=== PATIENT | female | born 1980 | race Caucasian/White ===

== ENCOUNTER 2018-03-30 13:10 | Emergency (ER) | payer OTHER ==
[~2018-03-30] VITALS: Ht 157.5 cm; Wt 70.9 kg
[2018-03-30 13:15] VITALS: BP 135/76
--- NOTE | 2018-03-30 13:16 | NUR ---
PT BROUGHT TO BED 5
[2018-03-30] MEDS ORDERED: FAMOTIDINE 20 MG/2 ML VIAL IVP ONE (13:35)
[2018-03-30] MEDS ORDERED: ACETAMINOPHEN EXTRA STRENGTH 500 MG TAB PO ONE (13:35)
[2018-03-30] MEDS ORDERED: ONDANSETRON 4 MG/2 ML VIAL IVP ONE (13:35)
--- NOTE | 2018-03-30 13:50 | NUR ---
BIB WITH C/O LT SIDED CHEST PAIN RADIATING TO THE BACK SIDE SINCE LAST NIGHT; DENIES N/V/D; 11 WKS ; LMP 01/12/2018 G 4 P2 MISC 1 HX; DENIES RX; DENIES
[2018-03-30 13:55] LABS: BASOPHILS % (AUTO) 0.3 % (0.0-2.0); EOSINOPHILS # (AUTO) 0.1 K/uL (0-0.4); EOSINOPHILS % (AUTO) 0.6 % (0.0-4.0); HEMATOCRIT 36.9 % (36-48); HEMOGLOBIN 12.3 g/dL (12.0-16.0); LYMPHOCYTES # (AUTO) 1.3 K/uL (2.5-16.5); LYMPHOCYTES % (AUTO) 12.4 % (20.5-51.1); MEAN CORPUSCULAR HEMOGLOBIN 28 pg (27-31); MEAN CORPUSCULAR HGB CONC 33 g/dL (33-37); MEAN CORPUSCULAR VOLUME 84.5 fL (80-94); MONOCYTES # (AUTO) 0.5 K/uL (0.8-1.0); MONOCYTES % (AUTO) 5.2 % (1.7-9.3); NEUTROPHILS # (AUTO) 8.3 K/uL (1.8-7.7); NEUTROPHILS % (AUTO) 81.5 % (42.2-75.2); PLATELET COUNT (AUTO) 235 K/uL (140-450); RED BLOOD CELL COUNT(AUTO) 4.36 MIL/uL (4.20-5.40); RED CELL DISTRIBUTION WIDTH 13.2 % (11.6-13.7); WHITE BLOOD COUNT (AUTO) 10.2 K/uL (4.8-10.8)
[2018-03-30] MEDS ORDERED: ONDANSETRON 4 MG/2 ML VIAL ONE (14:05)
[2018-03-30 14:06] LABS: ANION GAP 12.5 (8-16); CARBON DIOXIDE 22.8 mmol/L (21-32); CREATININE 0.7 mg/dL (0.6-1.3); POTASSIUM 3.3 mmol/L (3.5-5.1)
[2018-03-30] MEDS ORDERED: FAMOTIDINE 20 MG/2 ML VIAL ONE (14:07)
[2018-03-30] MEDS ORDERED: ACETAMINOPHEN EXTRA STRENGTH 500 MG TAB ONE (14:07)
[2018-03-30 14:12] LABS: TOTAL BILIRUBIN 0.2 mg/dL (0.0-1.0)
[2018-03-30] MEDS: NACL 0.9% 1,000 ML IV SCH ×2 (14:21→14:30)
[2018-03-30 14:32] LABS: APPEARANCE,URINE HAZY (CLEAR); BILIRUBIN,URINE 1+ (NEGATIVE); BLOOD, URINE TRACE-I (NEGATIVE); COLOR,URINE YELLOW (YELLOW); LEUKOCYTE ESTERASE ,URINE NEGATIVE (NEGATIVE); NITRITE, URINE NEGATIVE (NEGATIVE); UGLUCOSE NEGATIVE (NEGATIVE)
[2018-03-30] MEDS ORDERED: POTASSIUM CHLORIDE 10 MEQ TABER PO ONE ×2 (14:40→14:58)
[2018-03-30 15:03] LABS: RBC,URINE 0-5 (RARE) /HPF (0-5)
[2018-03-30 15:36] VITALS: BP 135/76
--- NOTE | 2018-03-30 15:39 | NUR ---
Patient discharged with v/s stable. Written and verbal after care instructions given and explained. Patient alert, oriented and verbalized understanding of instructions. Ambulatory with steady gait. All questions addressed prior to discharge. ID band removed. Patient advised to follow up with PMD. Rx of PEPCID, TYLENOL, MACROBID, ZOFRAN given. Patient educated on indication of medication including possible reaction and side effects. Opportunity to ask questions provided and answered.
== END 2018-03-30 15:39 | disposition home or self-care (01) ==
LOC: MED 13:10
DX: O26.891 Other specified pregnancy related conditions, first trimester (principal); R10.13 Epigastric pain; R51 Headache; Z3A.11 11 weeks gestation of pregnancy
CPT/HCPCS: 36415; 76705; 76830; 80053; 81001; 82150; 83690; 84702; 85025; 87086; 93005; 96374; 96375; 99285; J2405; J3490; Q0092

== ENCOUNTER 2018-09-12 17:45 | Emergency (ER) | payer OTHER ==
[~2018-09-12] VITALS: Ht 157.5 cm; Wt 68.0 kg
[2018-09-12 17:49] VITALS: BP 131/69
--- NOTE | 2018-09-12 17:50 | NUR ---
BIB WITH . AAO X4. C/O CONGESTION, BODY ACHES, RUNNY NOSE, SORE THROAT AND HEADACHE OF 7/10, GREEN SPUTUM. NO FEVER. NO N/V/D. NO SOB NOTED. CLEAR BILATERAL LUNGS UPON AUSCULTATION. PT TOOK ROBITUSSIN AT 0700 AND TYLENOL AT 1530. PT IS 35 WEEKS .
--- NOTE | 2018-09-12 18:05 | NUR ---
PA AT BEDSIDE FOR PT EVALUATION
[2018-09-12 18:57] LABS: APPEARANCE,URINE CLEAR (CLEAR); BILIRUBIN,URINE 1+ (NEGATIVE); BLOOD, URINE NEGATIVE (NEGATIVE); COLOR,URINE YELLOW (YELLOW); LEUKOCYTE ESTERASE ,URINE NEGATIVE (NEGATIVE); NITRITE, URINE NEGATIVE (NEGATIVE); UGLUCOSE NEGATIVE (NEGATIVE)
--- NOTE | 2018-09-12 19:05 | NUR ---
RECEIVED REPORT FROM VERONIKA HELMS.
[2018-09-12] MEDS ORDERED: ACETAMINOPHEN EXTRA STRENGTH 500 MG TAB PO ONE (19:25)
[2018-09-12] MEDS ORDERED: OSELTAMIVIR PHOSPHATE 75 MG CAP PO ONE (19:25)
[2018-09-12 20:15] VITALS: BP 128/64
--- NOTE | 2018-09-12 20:15 | NUR ---
Patient discharged with v/s stable. Written and verbal after care instructions given and explained. Patient alert, oriented and verbalized understanding of instructions. Ambulatory with steady gait. All questions addressed prior to discharge. ID band removed. Patient advised to follow up with PMD. Rx of TAMIFLU AND TYLENOL given. Patient educated on indication of medication including possible reaction and side effects. Opportunity to ask questions provided and answered.
== END 2018-09-12 20:15 | disposition home or self-care (01) ==
LOC: MED 17:45
DX: J10.1 Influenza due to other identified influenza virus with other respiratory manifestations (principal); R80.9 Proteinuria, unspecified
CPT/HCPCS: 81003; 87804; 99283

== ENCOUNTER 2019-02-15 10:24 | Emergency (ER) | payer OTHER ==
[~2019-02-15] VITALS: Ht 157.5 cm; Wt 74.8 kg
[2019-02-15 10:37] VITALS: BP 134/74
--- NOTE | 2019-02-15 11:13 | NUR ---
Patient ambulated to bed 4. RN evaluating patient at bedside.
--- NOTE | 2019-02-15 11:23 | NUR ---
Dr. Meadows evaluating patient at bedside.
--- NOTE | 2019-02-15 11:24 | NUR ---
PT C/O URI SYMPTOMS X 3 DAYS. WENT TO ON TH AND DX WITH URI, RX OF ZPACK AND PSEUDOEPHRINE DM. SX NOT IMPROVING. STATES NASAL CONGESTION, SNEEZING, THICK GREEN RHINORRHEA AND SPUTUM, THICK GREEN PRODUCTIVE COUGH, SORE THROAT X 3 DAYS. PAIN IN NOSE, HEAD, BODY ACHES. SINUS PAIN WORST AT 8/10 BURNING. DENIES SOB, FEVER, N/V/D. SLIGHT REDISHNESS NOTICED ON THROAT AND EARS BILATERAL W/O EDEMA OR DRAINAGE. LUNGS CLEAR BL; HR EVEN AND REGULAR; VSS; PATIENT POSITIONED FOR COMFORT; HOB ELEVATED; BEDRAILS UP X1; BED DOWN. ER MD MADE AWARE OF PT STATUS.
[2019-02-15 12:06] VITALS: BP 129/72
--- NOTE | 2019-02-15 12:06 | NUR ---
Patient discharged with v/s stable. Written and verbal after care instructions given and explained. Patient alert, oriented and verbalized understanding of instructions. Ambulatory with steady gait. All questions addressed prior to discharge. ID band removed. Patient advised to follow up with PMD. Rx of Tessalon Perles and Fluticasone Propionate given. Work excuse provided until 02/17/19. Patient educated on indication of medication including possible reaction and side effects. Opportunity to ask questions provided and answered.
== END 2019-02-15 12:06 | disposition home or self-care (01) ==
LOC: MED 10:24
DX: J06.9 Acute upper respiratory infection, unspecified (principal)
CPT/HCPCS: 99283

== ENCOUNTER 2021-06-17 14:14 | Emergency (ER) | payer OTHER, SELFPAY ==
[~2021-06-17] VITALS: Ht 157.5 cm; Wt 73.0 kg
[2021-06-17] MEDS ORDERED: ACETAMIN/CODEINE 120/12MG-5ML 5 ML UDC PO ONE (14:50)
[2021-06-17 15:10] VITALS: BP 118/77
--- NOTE | 2021-06-17 15:10 | NUR ---
40 y/o F BIB from home c/o COVID-like symptoms x 8 days. Reports testing + and states weak, fatigue with physical exertion, headache, body aches, dizziness, SOB, decreased appetite. Denies chest pain. SpO2 100% R.A. RStates Vitamin C, D, Ibuprofen @ 1100 with minor relief. States sick household members. PMH/Sx/Meds: Denies NKDA
--- NOTE | 2021-06-17 15:14 | NUR ---
patient to RAD from Tent accompanied by Jewel
[2021-06-17] MEDS ORDERED: NAPR-54 PO (15:42)
[2021-06-17] MEDS ORDERED: ROBAC PO (15:42)
[2021-06-17 16:12] VITALS: BP 121/75
--- NOTE | 2021-06-17 16:12 | NUR ---
Patient discharged with v/s stable. Written and verbal after care instructions given and explained. Patient alert, oriented and verbalized understanding of instructions. Ambulatory with steady gait. All questions addressed prior to discharge. ID band removed. Patient advised to follow up with PMD. Rx of FOR COVID 19 NAPROXEN, GUAIFENESIN-CODEINE given. Patient educated on indication of medication including possible reaction and side effects. Opportunity to ask questions provided and answered.
== END 2021-06-17 16:00 | disposition home or self-care (01) ==
LOC: MED 14:14
DX: U07.1 COVID-19 (principal); B34.9 Viral infection, unspecified; R53.83 Other fatigue; Z79.899 Other long term (current) drug therapy
CPT/HCPCS: 71045; 99283

== ENCOUNTER 2022-09-30 07:26 | Emergency (ER) | payer OTHER ==
[~2022-09-30] VITALS: Ht 157.5 cm; Wt 74.8 kg
[~2022-09-30 07:26] MED LIST: NAPR-54 PO; ROBAC PO
[2022-09-30 07:29] VITALS: BP 144/100
[2022-09-30] MEDS ORDERED: KETOROLAC 15 MG/ML VIAL IM ONE (08:00)
--- NOTE | 2022-09-30 08:40 | NUR ---
PT PLACED IN WHEELCHAIR [facility]C WITH STEABELT ON BY [facility]
[2022-09-30] MEDS ORDERED: IBUP-2218 PO (08:55)
[2022-09-30] MEDS ORDERED: ACET-10509 PO (08:55)
--- NOTE | 2022-09-30 09:01 | NUR ---
EILEEN WRAP X 1 APPLIED TO L KNEE
[2022-09-30 09:02] VITALS: BP 143/89
--- NOTE | 2022-09-30 09:02 | NUR ---
Patient discharged with v/s stable. Written and verbal after care instructions given. Patient alert, oriented and verbalized understanding of instructions. Ambulatory with steady gait. All questions addressed prior to discharge. ID band removed. Patient advised to follow up with PMD. Rx of Aceteminophen and Ibuprofen given. Opportunity to ask questions provided and answered. WORK NOTE HANDED TO PATIENT.
--- NOTE | 2022-09-30 09:03 | NUR ---
The patient's care was reviewed and supervised by Isa De Los Santos, RN, RN.
== END 2022-09-30 09:02 | disposition home or self-care (01) ==
LOC: MED 07:26
DX: S83.8X2A Sprain of other specified parts of left knee, initial encounter (principal); X58.XXXA Exposure to other specified factors, initial encounter; Y93.89 Activity, other specified; Y92.89 Other specified places as the place of occurrence of the external cause; Y99.8 Other external cause status
CPT/HCPCS: 73562; 81025; 96372; 99283; J1885